=== PATIENT | male | born 1960 | race Caucasian/White ===

== ENCOUNTER 2020-02-05 12:12 | Emergency (ER) | payer SELFPAY ==
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
[2020-02-05] MEDS ORDERED: Ketorolac Tromethamine 30 MG/ML VIAL ONE (13:46)
== END 2020-02-05 14:11 | disposition home or self-care (01) ==
LOC: ERS 12:12
DX: S06.0X0A Concussion without loss of consciousness, initial encounter (principal); M54.2 Cervicalgia; I10 Essential (primary) hypertension; Z79.899 Other long term (current) drug therapy; V49.60XA Unspecified car occupant injured in collision with unspecified motor vehicles in traffic accident, initial encounter
CPT/HCPCS: 70450; 72125; 96372; J1885

== ENCOUNTER 2020-03-24 15:15 | Outpatient (CLI) | payer OTHER ==
--- NOTE | 2020-03-24 16:47 | MRI ---
EXAM: MRI left shoulder PROVIDED CLINICAL HISTORY: Pain COMPARISON: None FINDINGS: There is full-thickness, full width retracted tearing of the supraspinatus tendon with approximately 2 cm of retraction. The components of the rotator cuff appear otherwise intact. The long head biceps tendon appears intact and normally located. There is a small glenohumeral joint effusion. The glenoid labrum and glenohumeral articular cartilage appear intact. Prominent acromioclavicular joint osteoarthrosis with mass effect upon the subjacent supraspinatus. C onspicuous subacromial subdeltoid bursal fluid. Rotator cuff muscular volume appears preserved. No focal concerning regional marrow or muscular signa l abnormality is evident. IMPRESSION: 1. Full-thickness, fullwidth retracted supraspinatus tendon tear. 2. Small glenohumeral joint effusion. 3. Conspicuous acromioclavicular joint osteoarthrosis.
== END 2020-03-24 15:16 | disposition home or self-care (01) ==
LOC: BICMRI 15:15
PROVIDERS: ATTEND Orthopaedic Surgery
DX: M75.42 Impingement syndrome of left shoulder (principal); M25.412 Effusion, left shoulder; M75.122 Complete rotator cuff tear or rupture of left shoulder, not specified as traumatic; M19.012 Primary osteoarthritis, left shoulder

== ENCOUNTER 2024-02-01 12:16 | Outpatient (CLI) | payer SELFPAY | END 2024-02-01 12:17 | disposition home or self-care (01) | LOC: ULT 12:16 | PROVIDERS: ATTEND Surgery | DX: N50.82 Scrotal pain (principal); N50.3 Cyst of epididymis | CPT/HCPCS: 76870; 93976 ==